=== PATIENT | male | born 1955 | race African-American/Black ===

== ENCOUNTER 2016-09-12 00:40 | Emergency (ER) | payer OTHER, MEDICAID ==
[~2016-09-12] VITALS: Ht 180.3 cm; Wt 147.0 kg
[~2016-09-12 00:40] MED LIST: ASPI-1035 PO; Hydrochlorothiazide; LOSA1TAB37 PO
[2016-09-12] MEDS ORDERED: ONDANSETRON HCL 4MG/2ML VIAL IV STA (01:22)
[2016-09-12] MEDS ORDERED: MORPHINE SULFATE 4 MG/ML CPJ (NOT FOR IM USE) IV STA (01:22)
[2016-09-12] MEDS ORDERED: KETOROLAC 30MG/ML VIAL IV STA (01:22)
[2016-09-12 01:38] LABS: BASOPHILS % 0.7 % (0.0-2.0); EOSINOPHILS % 0.3 % (0.0-5.0); HEMATOCRIT. 37.8 % (42.0-52.0); HEMOGLOBIN. 12.4 g/dL (14.0-18.0); LYMPHOCYTES % 8.3 % (20.0-50.0); MEAN CORPUSCULAR HEMOGLOBIN 26.5 pg (28.0-32.0); MEAN CORPUSCULAR HGB CONC 32.8 g/dL (31.0-37.0); MEAN CORPUSCULAR VOLUME 80.7 fL (80.0-94.0); MEAN PLATELET VOLUME 7.8 fl (7.4-10.4); MONOCYTES % 12.3 % (2.0-8.0); NEUTROPHILS % 78.4 % (40.0-76.0); PLATELET 193 x1000/uL (130-400); RED BLOOD CELL COUNT 4.68 mill/uL (4.7-6.1); RED CELL DISTRIBUTION WIDTH 16.8 % (11.6-14.6); WHITE BLOOD COUNT 12.3 x1000/uL (4.5-11.0)
[2016-09-12 01:44] LABS: CHLORIDE 98 mEq/L (98-107); INDEX HEMOLYSI 1 (1-3); INDEX ICTERIC 1 (1-4); INDEX LIPEMIC 1 (1-3)
[2016-09-12 01:45] LABS: PROTHROMBIN TIME 10.9 sec
[2016-09-12 01:54] LABS: ALANINE AMINOTRANSFERASE 20 IU/L (13-61); ALBUMIN 3.1 g/dL (3.4-5.0); ANION GAP 15; CALCIUM 9.1 mg/dL (8.5-10.1); CARBON DIOXIDE 29 mEq/L (21-32); UREA NITROGEN BLOOD 12 mg/dL (7-21); eGFR > 60 mL/min (>60)
[2016-09-12] MEDS ORDERED: LIDOCAINE HCL/EPINEPHRINE 1%-EPI 1:100,000 20 ML VIAL MC ONE (03:15)
[2016-09-12] MEDS ORDERED: LIDOCAINE HCL 1%/EPI 1:200,000 30 ML VIAL IJ NR (03:45)
[2016-09-12 05:16] LABS: BODY FLUID WBC 65500 /cu mm (0-200)
[2016-09-12 06:00] LABS: BODY FLUID MONOCYTES 11 %
[2016-09-12] MEDS ORDERED: MORPHINE SULFATE 4 MG/ML CPJ (NOT FOR IM USE) IV ONE ×2 (08:00→13:30)
[2016-09-12] MEDS ORDERED: LEVOFLOXACIN 500MG PREMIX 100 ML IV ONE (10:45)
[2016-09-12] MEDS ORDERED: DOXYCYCLINE 100 MG in DEXT 5% WATER 100 ML IV SCH (10:45)
[2016-09-12 14:10] VITALS: BP 155/101
== END 2016-09-12 14:26 | disposition short-term general hospital (02) ==
LOC: ER 00:42
DX: M00.9 Pyogenic arthritis, unspecified (principal); I10 Essential (primary) hypertension; H40.9 Unspecified glaucoma; M25.521 Pain in right elbow; M25.562 Pain in left knee; E11.9 Type 2 diabetes mellitus without complications; Z79.82 Long term (current) use of aspirin; Z88.0 Allergy status to penicillin; Z98.890 Other specified postprocedural states
CPT/HCPCS: 36415; 73080; 73562; 76881; 80053; 85025; 85610; 87040; 87070; 87205; 89050; 89060; 96365; 96367; 96375; 96376; 99285; J1885; J1956; J2270; J2405; J3490; J7060

== ENCOUNTER 2024-02-06 12:08 | Emergency (ER) | payer OTHER, MEDICAID ==
[~2024-02-06] VITALS: Ht 180.3 cm; Wt 110.0 kg
[~2024-02-06 12:08] MED LIST changes: -ASPI-1035 PO; +ASPI-1497 PO
[2024-02-06 12:12] VITALS: TEMP 98.7; O2SAT 98
[2024-02-06] MEDS: SODIUM CHLORIDE 0.9% 1,000 ML IV ONE (12:53)
[2024-02-06] MEDS: ONDANSETRON HCL 4MG/2ML INJ IV STA ×3 (12:54→16:03)
[2024-02-06] MEDS: KETOROLAC 30MG/ML VIAL IV STA (12:54)
[2024-02-06 13:04] LABS: BASOPHILS % 0.8 % (0.0-2.0); EOSINOPHILS % 0.8 % (0.0-5.0); HEMATOCRIT. 47.9 % (42.0-52.0); HEMOGLOBIN. 16.1 g/dL (14.0-18.0); LYMPHOCYTES % 15.9 % (20.0-50.0); MEAN CORPUSCULAR HEMOGLOBIN 30.1 pg (28.0-32.0); MEAN CORPUSCULAR HGB CONC 33.6 g/dL (31.0-37.0); MEAN CORPUSCULAR VOLUME 89.6 fL (80.0-94.0); MEAN PLATELET VOLUME 8.2 fl (7.4-10.4); MONOCYTES % 11.4 % (2.0-8.0); NEUTROPHILS % 71.1 % (40.0-76.0); PLATELET 267 x1000/uL (130-400); RED BLOOD CELL COUNT 5.34 mill/uL (4.7-6.1); RED CELL DISTRIBUTION WIDTH 15.7 % (11.6-14.6); WHITE BLOOD COUNT 10.3 x1000/uL (4.5-11.0)
[2024-02-06 13:12] LABS: CHLORIDE 98 mEq/L (98-107); POTASSIUM 3.2 mEq/L (3.5-5.1); SODIUM 138 mEq/L (136-145)
[2024-02-06 13:13] LABS: CALCIUM 10.4 mg/dL (8.7-10.4); CARBON DIOXIDE 31 mEq/L (21-32)
[2024-02-06 13:18] LABS: CREATININE 1.1 mg/dL (0.6-1.3); GLUCOSE 141 mg/dL (70-105); UREA NITROGEN BLOOD 15 mg/dL (9-23)
[2024-02-06] MEDS: MORPHINE SULFATE 4 MG/ML INJ (FOR IV/IM USE) IV STA ×2 (14:50→16:03)
[2024-02-06 19:30] VITALS: BP 158/78; PULSE 83; RESP 18; O2SAT 98
== END 2024-02-06 20:19 | disposition short-term general hospital (02) ==
LOC: ER 12:08 → CANBEDREQ 17:21 → ER 20:19
DX: K43.9 Ventral hernia without obstruction or gangrene (principal); E87.6 Hypokalemia; F12.10 Cannabis abuse, uncomplicated; E11.9 Type 2 diabetes mellitus without complications; I10 Essential (primary) hypertension; Z79.82 Long term (current) use of aspirin; Z88.0 Allergy status to penicillin
CPT/HCPCS: 99285; 74176; 96374; 96361; 96375; 80048; 83605; 83690; 85025; 36415; 93005; 96376; J1885; J2405; J2270; J7030